=== PATIENT | male | born 1960 | race African-American/Black ===

== ENCOUNTER 2017-05-24 08:23 | Day surgery (SDC) | payer OTHER ==
[~2017-05-24 08:23] MED LIST: Buffered Lidocaine 0.9% SYRIN* 5 ML/SYR SYRINGE INTRADERM ONE; Dexamethasone IV* 4 MG/ML 1 ML (4 MG) IV SLOW PU ONE; Famotidine IV* 10 MG/ML 2 ML (20 mg) IV ONE
[2017-05-24] MEDS ORDERED: Famotidine IV* 10 MG/ML 2 ML (20 mg) ONE (08:24)
[2017-05-24] MEDS ORDERED: Dexamethasone IV* 4 MG/ML 1 ML (4 MG) ONE (08:24)
[2017-05-24] MEDS ORDERED: ceFAZolin 2 GM PREMIX (*) 50 ML IVPB ONE (08:29)
[2017-05-24] MEDS ORDERED: Bupivacaine 0.25% SDV* 30 ML ONE ×2 (09:10→11:08)
[2017-05-24] MEDS ORDERED: Midazolam* 1 MG/ML 2 ML VIAL (2 MG) ONE (09:11)
[2017-05-24] MEDS ORDERED: fentaNYL* 50 MCG/ML 2 ML VIAL (100 MCG VIAL) ONE (09:11)
[2017-05-24] MEDS ORDERED: Lidocaine 2% PF * 5 ML VIAL ONE (09:11)
[2017-05-24] MEDS ORDERED: Propofol* 10 MG/ML 20 ML BTL IV PUSH ONE (09:11)
[2017-05-24] MEDS ORDERED: fentaNYL* 50 MCG/ML 2 ML VIAL (100 MCG VIAL) IV PRN (09:17)
[2017-05-24] MEDS ORDERED: HYDROcodone/ACETAMIN 5-325 MG* 1 TAB PO PRN (09:17)
[2017-05-24] MEDS ORDERED: Ketorolac INJ* 30 MG/ML 1 ML VIAL IV PRN (09:17)
[2017-05-24] MEDS ORDERED: PROCHLORPERAZINE INJ 5 MG/ML 2 ML VIAL IV PRN (09:17)
[2017-05-24] MEDS ORDERED: oxyCODONE/Acetamin 5/325 MG* TAB PO PRN (09:17)
[2017-05-24] MEDS ORDERED: Ondansetron INJ* 2 MG/ML VIAL ONE (10:17)
[2017-05-24 12:14] VITALS: BP 133/72
--- NOTE | 2017-05-25 02:54 | OP ---
DATE OF OPERATION: 05/24/17 - [facility] DATE OF : 60 SURGEON: Jose Daniel Keith MD PROCESS MANAGER: RUDOLPH Chávez. ANESTHESIOLOGIST: Dr. Tom Farmer. ANESTHESIA: General. 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 OPERATIVE PROCEDURE: 1. Right ulnar nerve decompression at the elbow with subcutaneous transposition. 2. Right ulnar nerve decompression at the wrist. INDICATIONS: Juan Miguel is an inmate who has severe peripheral ulnar nerve compression over the last many years. He has developed a claw-hand hand deformity. He has constant numbness and tingling in the ring and small fingers. I talked about treatment options, which would include a peripheral ulnar nerve decompression, tried to restore what sensation we can and salvageable function we can and then he will likely subsequently need tendon transfers to see if we can improve the claw- hand deformity. We talked about risks and benefits including the risks of persistent pain, numbness and tingling , and wound problems. He wanted to proceed. ESTIMATED BLOOD LOSS: 5 mL. COMPLICATIONS: None. FINDINGS: As expected. DESCRIPTION OF PROCEDURE: Juan Miguel was seen in the preoperative holding area. The correct side, site, and procedure were identified. We came back to the operating room. The arm was prepped and draped in the usual fashion. A time- out was performed. I began by exsanguinating the arm with the Esmarch and the tourniquet was inflated to 250 mmHg. I then made a longitudinal incision in typical location for a carpal tunnel release. This was extended across the wrist flexion creases obliquely in Theo type fashion. The dissection was carried down longitudinally. Guyon's canal was opened. It was quite a bit of thick fibrous tissue there. The motor branch was kinked as it dealt through all those thick fibrous bands. I went ahead and performed a release, released it along the entire length of the canal and then releasing the motor branch deeply around the hook of the hamate. Once there was absolutely no compression on the nerve and on the motor branch, I went ahead and irrigated out the wound. The skin was closed with 4-0 nylon suture. I then turned my attention to the elbow. A curvilinear incision was made in line with Reyes's ligament. This extended proximally and distally. The dissection was carried down with the Bovie proximally and then distally with the tenotomy scissors. The medial antebrachial cutaneous nerve was identified. The fascia was opened over the nerve at the proximal aspect of Reyes's ligament. I then did the decompression proximally. An appendiceal retractor was placed to retract the subcutaneous tissue and skin volarly to allow decompression of the nerve, well pass the 8 cm proximal to the medial epicondyle. Then came back and released Reyes's ligament and then went ahead and release the superficial FCU, split the 2 heads of the FCU and then released the subfascial layer of the FCU. Once I completed the release distally and there was absolutely no compression on the nerve, it become obvious during the decompression that the nerve was exiting and perched up on the medial epicondyle and then diving down deep to the fascia of the FCU and it was severely kinked and this is where the problem was. The Reyes's ligament had been very stretched and attenuated. I went ahead and excised the remainder of Reyes's ligament. I went ahead and excised the leading edge of the FCU and the medial intermuscular septum. I did a neurolysis. I had released the motor branches to both heads of the FCU for a few centimeters in order to gain adequate mobilization of the nerve. I then raised 2 fascial flaps off of the medial antebrachial fascia coming up towards the medial epicondyle. These were raised in step shah fashion. The septae in between the muscular bodies were released. Once I had a nice muscular bed, I went ahead and transposed the nerve on to the muscular bed. The 2 fascial flaps were then brought over the nerve and so together end-to-end with some [id number] Ethibond sutures. There was absolutely no compression on the nerve. There was no kinking of the nerve. I went ahead and flexed and extended the elbow. There was absolutely no kinking of the nerve. I went ahead and obtained hemostasis with the Bovie cautery. The wound was copiously irrigated. The skin was reapproximated with 3- 0 Vicryl suture and the skin was closed with 4-0 nylon suture. The wound was infiltrated with 0.25% plain Marcaine. The wounds are dressed with Xeroform, 4x4s, sterile Webril and a posterior slab splint with lateral buttress was applied. Tourniquet was deflated during splint placement. The hand pinked up immediately. He was then woken up and taken to the recovery room in stable condition. [id number]/[facility] #: [id number] JOHN
== END 2017-05-24 12:15 | disposition home or self-care (01) ==
LOC: OREAST 08:23
PROVIDERS: ATTEND Orthopaedic Surgery Hand Surgery
DX: G56.21 Lesion of ulnar nerve, right upper limb (principal); M21.511 Acquired clawhand, right hand; Z87.891 Personal history of nicotine dependence
CPT/HCPCS: J0690; J1100; J2250; J2405; J2704; J3010

== ENCOUNTER 2017-09-20 07:22 | Day surgery (SDC) | payer OTHER ==
[~2017-09-20 07:22] MED LIST changes: +Bupivacaine 0.25% SDV* 30 ML ONE
[2017-09-20] MEDS ORDERED: Buffered Lidocaine 0.9% SYRIN* 5 ML/SYR SYRINGE ONE (07:27)
[2017-09-20] MEDS ORDERED: Famotidine IV* 10 MG/ML 2 ML (20 mg) ONE (07:27)
[2017-09-20] MEDS ORDERED: Dexamethasone IV* 4 MG/ML 1 ML (4 MG) ONE (07:27)
[2017-09-20] MEDS ORDERED: ceFAZolin 2 GM PREMIX (*) 2 GM/50 ML BAG IVPB ONE (07:27)
[2017-09-20] MEDS ORDERED: Ondansetron INJ* 2 MG/ML VIAL ONE (08:20)
[2017-09-20] MEDS ORDERED: Propofol* 10 MG/ML 20 ML BTL IV PUSH ONE (08:20)
[2017-09-20] MEDS ORDERED: Ketorolac INJ* 30 MG/ML 1 ML VIAL ONE (08:20)
[2017-09-20] MEDS ORDERED: Midazolam* 1 MG/ML 10 ML VIAL (10 MG) ONE (08:21)
[2017-09-20] MEDS ORDERED: fentaNYL* 50 MCG/ML 5 ML VIAL (250 MCG VIAL) ONE (08:21)
[2017-09-20] MEDS ORDERED: DiMENhydriNATE IV* 50 MG/ML VIAL IV PUSH PRN (08:36)
[2017-09-20] MEDS ORDERED: Ondansetron INJ* 2 MG/ML VIAL IV PRN (08:36)
[2017-09-20] MEDS ORDERED: fentaNYL* 50 MCG/ML 2 ML VIAL (100 MCG VIAL) IV PRN (08:36)
[2017-09-20] MEDS ORDERED: oxyCODONE/Acetamin 5/325 MG* TAB PO PRN (08:36)
[2017-09-20] MEDS ORDERED: Naloxone* 0.4 MG/ML 1 ML VIAL IV PRN (08:36)
[2017-09-20] MEDS ORDERED: HYDROmorphone INJ* 1 MG/ML CARPUJECT SYRINGE IV PRN (08:36)
[2017-09-20] MEDS ORDERED: Lidocaine 2% PF * 5 ML VIAL ONE (08:54)
[2017-09-20 11:37] VITALS: BP 138/84
[2017-09-20] MEDS ORDERED: oxyCODONE/Acetamin 5/325 MG* TAB ONE (11:40)
--- NOTE | 2017-09-21 05:49 | OP ---
DATE OF OPERATION: 09/20/17 - [facility] DATE OF : 60 SURGEON: Jose Daniel Keith MD LEAD FRONT DESK AGENT: RUDOLPH Chávez ANESTHESIOLOGIST: Dr. Farias. ANESTHESIA: General. PRE-OP DIAGNOSIS: Severe peripheral left ulnar nerve decompression. POST-OP DIAGNOSIS: Severe peripheral left ulnar nerve decompression. OPERATIVE PROCEDURE: 1. Left ulnar nerve decompression at the wrist. 2. Left ulnar nerve decompression of the elbow with anterior subcutaneous transposition. Please note that this required extensive neurolysis and dissection of the nerve and was more difficult than the standard ulnar nerve decompression at the elbow. INDICATIONS: Juan Miguel has severe bilateral ulnar nerve decompression. I have done the right side, he is recovering. He has developed a claw hand on the right. On the left, he has pretty severe atrophy and is just starting to show the beginnings of the claw hand. I told him we had to decompress the ulnar nerve to try to preserve what function he has. He understands that he is going to have incomplete recovery and he will not recover the atrophied muscles; however, he wanted to proceed. ESTIMATED BLOOD LOSS: 5 mL. COMPLICATIONS: None. FINDINGS: As expected, severe compression of the ulnar nerve and kinking of the ulnar nerve at the elbow. DESCRIPTION OF PROCEDURE: Juan Miguel was seen in the preoperative holding area. The correct site, side, and procedure were identified. We came back to the operating room. The arm was prepped and draped in the usual fashion. A time- out was performed. We exsanguinated the arm with the Esmarch and the tourniquet was inflated to 250 mmHg. I began the surgery distally by making a longitudinal incision on the proximal palm, which was brought back along the ulnar wrist in Jaimee type fashion. The dissection was carried down and the fascia was released. The fascia overlying by making the roof of Guyon's canal was released. This was carried down to the nerve branch into the common and proper digital nerves. I then gently retracted the ulnar artery out of the way and the motor branch was released distally as it came around the hook of the hamate releasing the subfascial layer to perform a complete ulnar nerve decompression at the wrist. Once there was absolutely no compression proximally or distally, we irrigated out the wound and skin was closed with 4-0 nylon suture. I then turned my attention to the elbow. A curvilinear incision was made centered over Reyes's ligament and in line with the ulnar nerve. Dissection was carried down through the subcutaneous tissue. The medial antebrachial cutaneous nerve was identified. There was a couple of branches to it. It was dissected out and preserved throughout the entirety of case. This took quite some time to dissect it out and mobilize enough to be able to perform the transposition. I began the release of the ulnar nerve just proximal to the Reyes's ligament, this was released and appendiceal retractor was placed and the fascia was released all the way past the arcade of [place]. I then came distally and released a very thick and robust Reyes's ligament. The nerve was shaped over the medial epicondyle and then deep to Reyes's ligament. It was very kinked and compressed in this area. I then came distally and released the FCU superficial fascia. I split the two ends of the FCU and released the subfascial layer. At this point, the nerve was very adherent to the underlying tissues. It was already sitting in the subluxated position anterior to the medial epicondyle. I went ahead and placed a vessel loop and performed a complete neurolysis preserving the motor branch to the FCU distally. This took quite some time. I excised a very prominent medial intramuscular septum. There was a very large vein deep to this and this was cauterized. I excised the leading edge of the FCU fascia. Once I had it fully prepared, I went ahead and raised double opposing C type flaps of the pronator fascia. The enlarged thickened muscular septum was excised deep to this. Once I had a nice soft muscular bed for the nerve to be transposed on, I went ahead and transposed the nerve. The 2 flaps of the fascia were sewn together with 4-0 Ethibond suture. Hemostasis was obtained with the Bovie. Once full hemostasis was obtained and there was absolutely no kinking or compression of the nerve, I went ahead and irrigated out everything one last time. The subcutaneous tissue was reapproximated with 3-0 Vicryl, skin was closed with 4-0 Monocryl and Steri- Strips. The operative areas were infiltrated with 0.25% plain Marcaine. The wounds were dressed with Xeroform, 4x4s, and ABD at the elbow, sterile Webril and a long-arm splint with a lateral buttress was applied. Tourniquet was deflated and the hand pinked up immediately. He was then woken up and taken to the recovery room in stable condition. [id number]/[facility] #: [id number] JOHN
== END 2017-09-20 12:28 ==
LOC: OR 07:22
PROVIDERS: ATTEND Orthopaedic Surgery Hand Surgery
DX: G56.22 Lesion of ulnar nerve, left upper limb (principal); Z87.891 Personal history of nicotine dependence
CPT/HCPCS: A9270-GY; J0690; J1100; J1885; J2250; J2405; J2704; J3010

== ENCOUNTER 2018-01-10 06:22 | Day surgery (SDC) | payer OTHER ==
[~2018-01-10 06:22] MED LIST changes: -Bupivacaine 0.25% SDV* 30 ML ONE; -Dexamethasone IV* 4 MG/ML 1 ML (4 MG) IV SLOW PU ONE; -Famotidine IV* 10 MG/ML 2 ML (20 mg) IV ONE
[2018-01-10] MEDS ORDERED: Buffered Lidocaine 0.9% SYRIN* 5 ML/SYR SYRINGE ONE (06:48)
[2018-01-10] MEDS ORDERED: ceFAZolin 2 GM PREMIX (*) 2 GM/50 ML BAG IVPB ONE (06:48)
[2018-01-10] MEDS ORDERED: Bupivacaine 0.25% SDV* 30 ML ONE (07:23)
[2018-01-10] MEDS ORDERED: Lidocaine 1% INJ* 10 MG/ML 30 ML SDV ONE (07:23)
[2018-01-10] MEDS ORDERED: fentaNYL* 50 MCG/ML 2 ML VIAL (100 MCG VIAL) ONE ×2 (07:32→09:32)
[2018-01-10] MEDS ORDERED: DiMENhydriNATE IV* 50 MG/ML VIAL IV PUSH PRN (07:52)
[2018-01-10] MEDS ORDERED: Ondansetron INJ* 2 MG/ML VIAL IV PRN (07:52)
[2018-01-10] MEDS ORDERED: Naloxone* 0.4 MG/ML 1 ML VIAL IV PRN (07:52)
[2018-01-10] MEDS ORDERED: oxyCODONE TAB* 5 MG TAB PO PRN (07:52)
[2018-01-10] MEDS ORDERED: oxyCODONE TAB* 5 MG TAB ONE (09:32)
[2018-01-10] MEDS: fentaNYL* 50 MCG/ML 2 ML VIAL (100 MCG VIAL) IV PRN ×2 (09:36→10:05)
[2018-01-10 10:34] VITALS: BP 159/80
--- NOTE | 2018-01-11 12:14 | OP ---
DATE OF OPERATION: 01/10/18 - [facility] DATE OF : 60 SURGEON: Jose Daniel Keith MD DIRECTOR OF REAL ESTATE: RUDOLPH Chávez. An litigation legal assistant was needed for the entirety of the procedure to aid in positioning of the arm and retraction. ANESTHESIOLOGIST: Dr. Moreno. ANESTHESIA: General. 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 POST-OP DIAGNOSIS: Right claw hand deformity secondary to severe chronic ulnar nerve compression. PROCEDURE PERFORMED: 1. Right middle finger flexor digitorum superficialis transfer to the right ring finger proximal phalanx. 2. Right middle finger flexor digitorum superficialis transfer to the right small finger proximal phalanx for correction of claw hand deformity. INDICATIONS: Juan Miguel is 57 years old. He has severe ulnar nerve compression. I have now done surgery to decompress both sides at the wrist and at the elbow. The intrinsics are definitely much more affected than the FDP. When MP joints are held out of hyperextension, he is able to nicely extend the IP joints. I, therefore, thought he would do well. We could give him a little bit of a block to MP joint hyperextension. I did not want to do Zancolli-Lasso procedure as I was worried about sacrificing the FDS of the ring and small finger due to his already weakened FDP. I therefore decided to transfer the FDS of the middle finger to the ring and small fingers. ESTIMATED BLOOD LOSS: 2 mL. COMPLICATIONS: None. FINDINGS: As expected. DESCRIPTION OF PROCEDURE: Juan Miguel was seen in the preoperative holding area. The correct side, site, and procedure were identified. We came back to the operating room. The arm was prepped and draped in the usual fashion. A time- out was performed. I begun by exsanguinating the arm with the Esmarch and the tourniquet was inflated to 250 mmHg. I initially made a V-shaped incision over the volar aspect of the right middle finger PIP joint. Dissection was carried down, the A3 asmita was opened up. I released the FDS tendon just proximal to the Camper' s chiasm. The A3 asmita was then closed with 5-0 Prolene and skin is closed with 4-0 nylon suture. I then came in to the palm, just in the mid palm, just distal to the superficial palmar arch I made a little Jaimee-shaped incision over the FDS tendon of the right middle finger. The palmar fascia was opened up. The FDS tendon was delivered into that wound. The 2 tails of the tendon were split. I then made radial, mid axial incisions over the proximal phalanx of the ring and small fingers. Dissection was carried down. Subcutaneous tissue was raised up off to expose the lateral band as well as the radial aspect of the proximal phalanx and the A2 asmita. I started on the ring finger and I passed the tendon passer through the lumbrical tunnel palmar to the transverse intermetacarpal ligament and out of my wound where I had my FDS tendon. I retrieved more radial slip to the FDS tendon and pulled this down through the lumbrical tunnel and out my ring finger wound. I then did the same thing on the small finger retrieving the ulnar slip to the FDS and delivering this palmar to the transverse intermetacarpal ligament. I then placed a suture anchor into the volar and proximal aspect of the proximal phalanx of the right finger. This was a mini Mitek suture anchor. The 2-0 Ethibond suture was then used to sew the FDS tendon down to the bone. I augmented this with a couple of 4-0 Ethibond sutures sewing the tendon to the tendon sheath. I did not sew it to the radial lateral band. In similar fashion, I placed a suture anchor in the small finger and sewed the tendon down to the bone. I then augmented that with couple of 4-0 Ethibond figure- of-eight sutures sewing the tendon to the sheath. I trimmed the tendon edges. Everything was looking good so I irrigated out the wound. Skin was closed with 4-0 nylon suture. Wounds were infiltrated with 0.25% plain Marcaine. Please note that I had set the tension on the tendon transfers with the wrist in neutral to very slight extension MP joints in about 60 to 80 degrees of flexion and the IP joints in neutral. Wounds were dressed. A splint was placed holding the hand in the intrinsic position. The tourniquet was deflated. The fingers pinked up immediately. He was awoken up and taken to the recovery room in stable condition. [id number]/[facility] #: [id number] [facility] SERVICESLaura
== END 2018-01-10 10:48 | disposition home or self-care (01) ==
LOC: OR 06:22
PROVIDERS: ATTEND Orthopaedic Surgery Hand Surgery
DX: M21.511 Acquired clawhand, right hand (principal); G56.21 Lesion of ulnar nerve, right upper limb; K21.9 Gastro-esophageal reflux disease without esophagitis
CPT/HCPCS: A9270-GY; C1713; J0690; J3010

== ENCOUNTER 2019-01-30 10:24 | Day surgery (SDC) | payer OTHER ==
[~2019-01-30 10:24] MED LIST changes: -Buffered Lidocaine 0.9% SYRIN* 5 ML/SYR SYRINGE INTRADERM ONE; +Buffered Lidocaine 1% SYRIN* 1 ML/SYRINGE INTRADERM ONE; +Famotidine IV* 10 MG/ML 2 ML (20 mg) IV ONE; +Lactated Ringers 1000 ML Bag* 1,000 ML IV SCH
[2019-01-30] MEDS ORDERED: Famotidine IV* 10 MG/ML 2 ML (20 mg) ONE (11:11)
[2019-01-30] MEDS ORDERED: ceFAZolin 2 GM PREMIX in ORs 2 GM/50 ML BAG ONE (11:11)
[2019-01-30] MEDS ORDERED: Buffered Lidocaine 1% SYRIN* 1 ML/SYRINGE INTRADERM ONE (11:11)
[2019-01-30] MEDS ORDERED: fentaNYL* 50 MCG/ML 2 ML VIAL (100 MCG VIAL) ONE (11:37)
[2019-01-30] MEDS ORDERED: Midazolam* 1 MG/ML 5 ML VIAL (5 MG) ONE (11:37)
[2019-01-30] MEDS ORDERED: Bupivacaine 0.5%* 50 ML VIAL ONE (12:08)
[2019-01-30] MEDS ORDERED: Bupivacaine 0.25% SDV PF* 10 ML VIAL INJ ONE ×2 (12:08→12:41)
[2019-01-30] MEDS ORDERED: Dexamethasone IV* 4 MG/ML 1 ML (4 MG) ONE (13:49)
[2019-01-30] MEDS ORDERED: Lidocaine 2% PF * 5 ML VIAL ONE (13:49)
[2019-01-30] MEDS ORDERED: Ondansetron INJ* 2 MG/ML VIAL ONE (13:49)
[2019-01-30] MEDS ORDERED: Propofol* 10 MG/ML 20 ML BTL ONE (13:49)
[2019-01-30] MEDS ORDERED: Ketorolac INJ* 30 MG/ML 1 ML VIAL ONE (13:49)
[2019-01-30] MEDS ORDERED: Acetaminophen TAB* 325 MG PO PRN (14:09)
[2019-01-30] MEDS ORDERED: Naloxone* 0.4 MG/ML 1 ML VIAL IV PRN (14:09)
[2019-01-30] MEDS ORDERED: HYDROmorphone INJ1* 1 MG/ML SYRINGE IV PRN (14:09)
[2019-01-30] MEDS ORDERED: DiMENhydriNATE IV* 50 MG/ML VIAL IV PUSH PRN (14:09)
[2019-01-30] MEDS ORDERED: oxyCODONE TAB* 5 MG TAB PO PRN (14:09)
[2019-01-30 15:20] VITALS: BP 152/80
--- NOTE | 2019-01-30 15:31 | OP ---
DATE OF OPERATION: 01/30/19 - [facility] DATE OF : 60 SURGEON: Jose Daniel Keith MD. PANEL MAKER: RUDOLPH Chávez. ANESTHESIOLOGIST: Dr. Foss. ANESTHESIA: General. PRE-OP DIAGNOSIS: Retained deep sutures, right ring and small fingers with very symptomatic and bulky tendon transfers status post correction of clawhand. POST-OP DIAGNOSIS: Retained deep sutures, right ring and small fingers with very symptomatic and bulky tendon transfers status post correction of clawhand. OPERATIVE PROCEDURES: 1. Excision of deep retained sutures, right ring and small fingers at site of prior tendon transfers. 2. Debulking and partial excision of tendons, right ring and small fingers at site of prior tendon transfers. ESTIMATED BLOOD LOSS: 2 mL. COMPLICATIONS: None. FINDINGS: See above and below. DESCRIPTION OF PROCEDURE: Juan Miguel was seen in the preoperative holding area. The correct side and site of the procedures were identified. We came back to the operating room and the arm was prepped and draped in the usual fashion and a time- out was performed. The arm was exsanguinated with the Esmarch and the tourniquet was inflated to 250 mmHg. I first reopened his prior incision longitudinally in the midaxial line on the radial aspect of the small finger. Dissection was carried down and the Ethibond suture was encountered. It was very bulky. This was all excised. This was excised with a #15 blade and then with the rongeur. The tendon transfer was a bit bulky there. It was smoothed down to a nice smooth edge. Once I excised that portion of the tendon and everything was looking good, irrigated out the wound and turned our attention to the ring finger. In lengthy fashion, I reopened the midaxial incision. Dissection was carried down. All of the suture was exposed. This was all excised with the #15 blade. Again, the tendon transfer was bulky. I went ahead and debulked the tendon transfer. At this point, everything was looking good. We irrigated out the wound. I got a mini C-arm fluoroscopic image just to make sure everything looked good with regards to the bone. We went ahead and irrigated out the wound. The wound and skin was closed with 4-0 nylon suture and 0.25% plain Marcaine was infiltrated on in the operative area. A soft dressing was applied and he was taken to the recovery room in stable condition. [id number]/[facility] #: [id number] JOHN
== END 2019-01-30 15:29 ==
LOC: OR 10:24
PROVIDERS: ATTEND Orthopaedic Surgery Hand Surgery
DX: T84.84XA Pain due to internal orthopedic prosthetic devices, implants and grafts, initial encounter (principal); M67.843 Other specified disorders of tendon, right hand; Z87.891 Personal history of nicotine dependence
CPT/HCPCS: 76000; J0690; J1100; J1885; J2250; J2405; J2704; J3010; J3490